=== PATIENT | male | born 1950 | race Caucasian/White ===

== ENCOUNTER 2024-05-05 01:52 | Emergency (ER) | payer MEDICARE ==
[~2024-05-05] VITALS: Ht 182.9 cm; Wt 117.9 kg
--- NOTE | 2024-05-05 02:05 | NUR ---
PATIENT REPORTS HE TRIPPED AND FELL ON HANDS AND KNEES AT ABOUT 2130 TONIGHT. REPORTS LLQ ABD PAIN AND ABRASION TO L KNEE
[2024-05-05] MEDS: HYDROcodone/APAP 5/325 1 TAB TABLET PO ONE (02:51)
[2024-05-05 04:17] LABS: BASOPHILS # (AUTO) 0.04 K/uL (0.00-0.20); BASOPHILS % (AUTO) 0.3 % (0.0-5.0); EOSINOPHILS # (AUTO) 0.01 K/uL (0.00-0.70); EOSINOPHILS % (AUTO) 0.1 % (0.0-8.0); HEMATOCRIT 43.4 % (42-54); LYMPHOCYTES # (AUTO) 0.9 K/uL (1.0-4.8); LYMPHOCYTES % (AUTO) 5.4 % (21.0-51.0); MEAN CORPUSCULAR HEMOGLOBIN 31.2 pg (27.0-33.0); MEAN CORPUSCULAR HGB CONC 34.3 g/dL (32.0-36.0); MEAN CORPUSCULAR VOLUME 90.8 fL (79-99); MONOCYTES # (AUTO) 0.8 K/uL (0.1-1.0); MONOCYTES % (AUTO) 4.7 % (3.0-13.0); NEUTROPHILS # (AUTO) 14.1 K/uL (1.8-7.7); NEUTROPHILS % (AUTO) 88.9 % (40.0-77.0); PLATELET COUNT (AUTO) 233 K/uL (130-400); RED BLOOD CELL COUNT(AUTO) 4.78 MIL/uL (4.50-6.20); RED CELL DISTRIBUTION WIDTH 12.8 % (11.0-15.5); WHITE BLOOD COUNT (AUTO) 15.8 K/uL (4.8-10.8)
[2024-05-05 04:24] LABS: CREATININE 1.3 mg/dL (0.5-1.3); POTASSIUM 4.2 mmol/L (3.5-5.1)
--- NOTE | 2024-05-05 04:27 | NUR ---
TRANSFER CALL PLACED TO [facility] DRIVER SERVICE TECHNICIAN TO INITIATE TRANSFER FOR TRAUMA PATIENT
[2024-05-05 04:29] LABS: INR 0.96 (0.85-1.15); PROTHROMBIN TIME 10.8 SEC (9.6-11.6)
[2024-05-05 04:31] LABS: PARTIAL THROMBOPLASTIN TIME 23.6 SEC (26.3-35.5)
[2024-05-05] MEDS ORDERED: IOHEXOL-350 75 ML VIAL IV ONE (04:45)
--- NOTE | 2024-05-05 04:54 | NUR ---
TRANSFER PT. ACCEPTED BY LLOYD VIRGEN MD (SURGEON) @ [id number] AND GIAN BERTRAND MD (ER) FOR TRANSF[place] [facility] [place] [facility] REPORT: [phone]
[2024-05-05] MEDS: cefTRIAXone 1G VIAL IVPB ONE (05:01)
--- NOTE | 2024-05-05 05:05 | NUR ---
[facility] CALLED FOR TRANSPORT OF TRAUMA PT. TO [facility] [place]
--- NOTE | 2024-05-05 05:13 | ERN ---
General Chief Complaint: Mechanical Fall Stated Complaint: FALL History of Present Illness Initial Comments 73-year-old male came in for a fall after which he states that he has been having left flank pain. Patient denies head trauma or loss of consciousness. Patient states that he fell and hit the side of his flank. Patient is a was has no concerns. Allergies: Coded Allergies: No Known Allergies (Unverified Allergy, Unknown, 05/05/24) Past Medical History Past Medical History: High Cholesterol Past Surgical History: Appendectomy ROS Dictation CONSTITUTIONAL: Negative except for HPI HEAD/FACE: Negative except for HPI EENT: Negative except for HPI RESPIRATORY: Negative except for HPI GASTROINTESTINAL/ABDOMINAL: Negative except for HPI GENITOURINARY: Negative except for HPI MUSCULOSKELETAL: Negative except for HPI INTEGUMENTARY: Negative except for HPI NEUROLOGICAL/PSYCH: Negative except for HPI HEMATOLOGIC/LYMPHATIC: Negative except for HPI All Systems Negative, Except as noted above. 13 point review of systems assessed and all negative except for above. Physical Exam Physical Exam Dictation Vital Signs reviewed General Appearance: Alert, oriented x 3, no acute distress, well developed, nourished. Head and Face: non-traumatic. Eyes: PERRL, pink conjunctivas, eyelid no trauma, anterior chamber with arcus senilis. Ears: Pinnas intact and no signs of trauma or erythema ear canals clear and no discharge TM no erythema Nose: No discharge, no bleeding. Oropharynx: Mouth normal, tongue pink, pharynx clear,no erythema, tonsils no exudates, no abscesses noted, mucous membrane moist Neck: Supple, non-tender, no thyromegaly, no masses, no JVD, no bruits Breast:Deferred Chest:No tenderness, no crepitus, no paradoxical movement, no retractions Lungs:Clear, well-ventilated, symmetric, no rales, no wheezing, no rhonchi, no stridor, good breath sounds bilaterally Heart: Regular rate, regular rhythm, no murmur, no gallops Vascular: no peripheral edema, Abdomen: There is tenderness on palpation of the left flank. nontender, no rebound, no masses no hepatomegaly, no splenomegaly, no Grey's sign, no hernias. Rectal: Deferred Genital: Deferred Neurological: Normal speech, motor function intact, sensory function intact Musculoskeletal: Neck nontender, full range of motion, back nontender, full range of motion, Extremities: nontender, full range of motion Skin: Color pink, dry, no turgor, no rash, no lacerations, no abrasions, no contusions. Lymphatic: Deferred Results Laboratory and Microbiology Lab and Micro Result Laboratory Tests Test 05/05/24 04:05 White Blood Count 15.8 K/uL (4.8-10.8) H Red Blood Count 4.78 MIL/uL (4.50-6.20) Hemoglobin 14.9 g/dL (14.0-18.0) Hematocrit 43.4 % (42-54) Mean Corpuscular Volume 90.8 fL (79-99) Mean Corpuscular Hemoglobin 31.2 pg (27.0-33.0) Mean Corpuscular Hemoglobin Concent 34.3 g/dL (32.0-36.0) Red Cell Distribution Width 12.8 % (11.0-15.5) Platelet Count 233 K/uL (130-400) Mean Platelet Volume 9.1 fL (7.5-10.5) Immature Granulocyte % (Auto) 0.6 % (0-1) Neutrophils (%) (Auto) 88.9 % (40.0-77.0) H Lymphocytes (%) (Auto) 5.4 % (21.0-51.0) L Monocytes (%) (Auto) 4.7 % (3.0-13.0) Eosinophils (%) (Auto) 0.1 % (0.0-8.0) Basophils (%) (Auto) 0.3 % (0.0-5.0) Neutrophils # (Auto) 14.1 K/uL (1.8-7.7) H Lymphocytes # (Auto) 0.9 K/uL (1.0-4.8) L Monocytes # (Auto) 0.8 K/uL (0.1-1.0) Eosinophils # (Auto) 0.01 K/uL (0.00-0.70) Basophils # (Auto) 0.04 K/uL (0.00-0.20) Absolute Immature Granulocyte (auto 0.10 K/uL (0-1) Nucleated Red Blood Cells 0.0 % (0.0-0.19) White Cell Morphology Comment See comments Prothrombin Time 10.8 SEC (9.6-11.6) Prothromb Time International Ratio 0.96 (0.85-1.15) Activated Partial Thromboplast Time 23.6 SEC (26.3-35.5) L Sodium Level 137 mmol/L (136-145) Potassium Level 4.2 mmol/L (3.5-5.1) Chloride Level 102 mmol/L (101-111) Carbon Dioxide Level 28 mmol/L (21-32) Blood Urea Nitrogen 19 mg/dL (7-18) H Creatinine 1.3 mg/dL (0.5-1.3) Glomerular Filtration Rate Calc 58 mL/min (>90) Random Glucose 129 mg/dL (70-105) H Total Calcium 9.6 mg/dL (8.5-10.1) MDM MDM: Differential diagnosis: Rationale: Tests considered and ordered secondary to shared decision making include: Previous outside records reviewed: Old ER visits. Risk of complication and/or morbidity or mortality of patient management: None Medications-Per medication reconciliation Need for hospitalization: Patient does meet criteria for hospitalization. Need for emergency major/minor surgery: No There are no social concerns with this patient. Prescription drug management Prescriptions will include symptomatic care Patient's prior external medical records from other ER visits were reviewed by me as indicated. Prior testing and results from previous visits were reviewed. Prior tests were taken into account with medical decision making and resource utilization, independent historian/historians were used to obtain complete medical history. I independently interpreted the test that were performed, results were reviewed by me and considered findings on radiology if ordered. Medical management and examination interpretation discussions were had by me with other qualified healthcare professionals as indicated for the patient's care. There is left renal subscapular hematoma. Since this is secondary to fall/trauma patient will be transferred to [facility] for trauma management and evaluation. Patient has been accepted. Patient understand and agrees with plan of care. ED Course Orders Procedure Category Date Status Time Ct Chest/Abd/Pelv W/O CT 05/05/24 Taken Contrast 02:39 Hydrocodone/Apap PHA 05/05/24 Complete 5/325 ([place] 5/325mg) 03:00 Cbc With Differential LAB 05/05/24 Complete 04:02 Basic Metabolic Panel LAB 05/05/24 Complete 04:02 Pt And Ptt LAB 05/05/24 Complete 04:02 Ct Abdomen/Pelvis CT 05/05/24 Taken W/Contrast 04:02 Ceftriaxone 1g Vial PHA 05/05/24 Complete (Rocephine 1g Inj) 04:30 Iohexol (Omnipaque) PHA 05/05/24 Complete 04:45 Type And Screen BBK 05/05/24 Logged 04:54 Current Medications Medications (Trade) Dose Ordered Sig/Neo Route PRN Reason Start Time Stop Time Status Last Admin Dose Admin Acetaminophen/ Hydrocodone Bitart (NORco 5/325MG) 1 tab ONCE ONCE PO 05/05/24 03:00 05/05/24 03:01 DC 05/05/24 02:51 Ceftriaxone Sodium (ROCEphine 1G INJ) 1 gm ONCE ONCE IVPB 05/05/24 04:30 05/05/24 04:31 DC 05/05/24 05:01 Iohexol (Omnipaque) 75 ml STK-MED ONCE IV 05/05/24 04:45 05/05/24 04:45 DC Vital Signs Date Time Temp Pulse Resp B/P (MAP) Pulse Ox O2 Delivery O2 Flow Rate FiO2 05/05/24 04:32 98.6 77 20 121/77 95 Room Air* 0 21 05/05/24 03:30 98.4 72 20 128/80 100 Room Air* 0 21 05/05/24 02:31 98.6 70 20 134/88 100 Room Air* 0 21 05/05/24 01:53 97.7 72 18 145/94 96 Room Air DX & DISP Disposition: Transfer Departure Impression: Primary Impression: Perinephric hematoma Additional Impression: Fall Condition: Stable Referrals: NONE SKY RICCI MD May 05, 2024 05:13
[2024-05-05 05:31] VITALS: BP 143/77; PULSE 74; RESP 20; TEMP 98.6; O2SAT 95
--- NOTE | 2024-05-05 06:00 | NUR ---
ATTEMPTED TO CALL REPORT X2 NO ANSWER AT THIS TIME
--- NOTE | 2024-05-05 08:21 | HMCIMG ---
Exam Type: CT ABDOMEN/PELVIS W/CONTRAST Clinical Information: Perinephric hematoma Comparison: None Contrast: 100 cc's Isovue 370 IV, no complications or adverse reactions CT Dose Index (CTDI): 31.60 mGy Dose Length Product (DLP): 1740.80 total mGy-cm Findings: No evidence of nephro or ureterolithiasis is found. No hydronephrosis or ureteral dilatation is seen. Acute left perirenal hematoma 3.9 x 9.4 cm. The lung bases are clear. The stomach is unremarkable. It shows no wall thickening. No gross ulceration is seen. It is not overly distended. There are no surrounding inflammatory changes. No wall lesions are identified to suggest cancer. The spleen is unremarkable. It is not enlarged. The pancreas shows normal anatomy. It is not fatty replaced. It shows no lesions. The pancreatic duct is not dilated. The gallbladder is unremarkable. It shows no cholelithiasis. The gallbladder wall is normal in thickness. There is no pericholecystic fluid. The is no acute or chronic inflammation noted. The adrenal glands are unremarkable. There is no enlargement. No lesions are noted. The liver is unremarkable. It shows no focal masses. The appendix is unremarkable. It shows no evidence of inflammation. No appendicolith is seen. The small bowel is unremarkable. There is no evidence of dilatation to suggest obstruction. No evidence of adynamic ileus is seen. There is no small bowel wall thickening to suggest enteritis. The colon is unremarkable. The urinary bladder is unremarkable. There is no wall thickening to suggest tumor or inflammation. There are no intraluminal calculi. There are no diverticula. There is no evidence of chronic bladder outlet obstruction. There is no evidence of urinary bladder distention to suggest urinary retention. The other pelvic structures are unremarkable. The bony and vascular structures are unremarkable for the patient's age. Left testis is calcified. IMPRESSION: Acute left perirenal hematoma. This study was performed using dose reduction techniques to include automated exposure control and/or adjustment of the mA and/or kV according to patient size.
--- NOTE | 2024-05-05 08:28 | HMCIMG ---
Exam Type: CT CHEST/ABD/PELV W/O CONTRAST Clinical Information: fall left sided abd pain Comparison: None CT Dose Index (CTDI): 19.73 mGy Dose Length Product (DLP): 1260.8 total mGy PROTOCOL: Examination is done at 2.5 millimeter volumetric acquisition . Photography is done at 5 millimeter thick intervals for the thorax. Findings: CHEST The airway is intact. The trachea and major bronchi are unremarkable. The chest exam shows no pulmonary nodules or masses. No significant pulmonary parenchymal abnormalities are noted. No pulmonary infiltrates or mass lesions are seen. No pleural effusions are identified. The nonenhanced exam of the jose and mediastinum is unremarkable. No evidence of hilar enlargement is seen. The aorta shows no aneurysmal dilatation or significant atheromatous calcification. No significant brachiocephalic vascular abnormalities are seen. The heart is unremarkable. It is not enlarged. No significant coronary arterial calcifications are seen. There is no pericardial effusion. The rib cage appears unremarkable. The soft tissues of the chest wall are unremarkable. The dorsal spine shows no significant abnormalities. ABDOMEN/ PELVIS No evidence of nephro or ureterolithiasis is found. No hydronephrosis or ureteral dilatation is seen. Acute left perirenal hematoma seen, 11 x 13 cm. Calcified left testis. The lung bases are clear. The stomach is unremarkable. It shows no wall thickening. No gross ulceration is seen. It is not overly distended. There are no surrounding inflammatory changes. No wall lesions are identified to suggest cancer. The spleen is unremarkable. It is not enlarged. The pancreas shows normal anatomy. It is not fatty replaced. It shows no lesions. The pancreatic duct is not dilated. The gallbladder is unremarkable. It shows no cholelithiasis. The gallbladder wall is normal in thickness. There is no pericholecystic fluid. The is no acute or chronic inflammation noted. The adrenal glands are unremarkable. There is no enlargement. No lesions are noted. The liver is unremarkable. It shows no focal masses. The appendix is unremarkable. It shows no evidence of inflammation. No appendicolith is seen. The small bowel is unremarkable. There is no evidence of dilatation to suggest obstruction. No evidence of adynamic ileus is seen. There is no small bowel wall thickening to suggest enteritis. The colon is unremarkable. The urinary bladder is unremarkable. There is no wall thickening to suggest tumor or inflammation. There are no intraluminal calculi. There are no diverticula. There is no evidence of chronic bladder outlet obstruction. There is no evidence of urinary bladder distention to suggest urinary retention. The other pelvic structures are unremarkable. The bony and vascular structures are unremarkable for the patient's age. Impression: Normal chest examination. Clear lungs. No infiltrates. No mediastinal lymphadenopathy. Acute left perirenal hematoma seen, 11 x 13 cm. Calcified left testis. Preliminary report with this information was sent by the on-call radiologist to ordering physicians time of exam. This study was performed using dose reduction techniques to include automated exposure control and/or adjustment of the mA and/or kV according to patient size.
== END 2024-05-05 06:14 | disposition short-term general hospital (02) ==
LOC: EDH 01:52
DX: S37.019A Minor contusion of unspecified kidney, initial encounter (principal); E78.00 Pure hypercholesterolemia, unspecified; Z90.49 Acquired absence of other specified parts of digestive tract; W18.39XA Other fall on same level, initial encounter; Y93.89 Activity, other specified; Y92.89 Other specified places as the place of occurrence of the external cause; Y99.8 Other external cause status
CPT/HCPCS: 99285; 71250; 96374; 80048; 85025; 85610; 85730; 86850; 86900; 86901; 36415; 74177; 74176; J0696; Q9967